=== PATIENT | female | born 1990 | race Asian ===

== ENCOUNTER 2021-04-18 09:58 | Emergency (ER) | payer OTHER ==
[~2021-04-18] VITALS: Ht 152.4 cm; Wt 59.0 kg
[2021-04-18 10:30] VITALS: BP 129/98; TEMP 96.4
== END 2021-04-18 11:53 | disposition home or self-care (01) ==
LOC: ED 09:58
DX: Z53.21 Procedure and treatment not carried out due to patient leaving prior to being seen by health care provider (principal)
CPT/HCPCS: 99281; J0696

== ENCOUNTER 2021-04-19 19:42 | Emergency (ER) | payer OTHER ==
[~2021-04-19] VITALS: Ht 152.4 cm; Wt 59.0 kg
[2021-04-19 19:50] VITALS: TEMP 99.5
[2021-04-19 20:59] LABS: POTASSIUM 3.5 mmol/L (3.6-5.2); SODIUM 137 mmol/L (136-145)
[2021-04-19 21:00] LABS: PLATELET COUNT 218 K/uL (152-353)
[2021-04-20 00:32] VITALS: BP 114/57
== END 2021-04-20 00:32 | disposition home or self-care (01) ==
LOC: ED 19:42
PROVIDERS: Emergency Medicine Emergency Medical Services
DX: J01.80 Other acute sinusitis (principal); R09.1 Pleurisy
CPT/HCPCS: 36415; 80053; 81000; 81025; 84484; 85027; 86140; 93005; 96360; 96365; 96375; 99284; J1885